=== PATIENT | male | born 1965 | race Two or more races ===

== ENCOUNTER 2018-09-04 05:00 | Day surgery (SDC) | payer OTHER ==
[~2018-09-04 05:00] MED LIST: ASPIR 8181 MG PO; CO Q-1010 MG PO; OSTERA TABLET1 EACH PO; QVAR8.7 G1 IH
== END 2018-09-04 09:10 | disposition home or self-care (01) ==
LOC: CIR.AMB 05:00
DX: M67.843 Other specified disorders of tendon, right hand (principal)